=== PATIENT | female | born 1995 | race African-American/Black ===

== ENCOUNTER 2017-10-08 09:45 | Emergency (ER) | payer SELFPAY ==
[2017-10-08 11:14] LABS: Bilirubin Negative (Negative); Blood, Urine Trace (Negative); Glucose, Urine (Dipstick) Negative (Negative); Ketone, Urine Negative (Negative); Nitrite Negative (Negative); Protein, Urine (Dipstick) Negative (Neg-Trace); Urobilinogen 0.2 mg/dL (0.2-1.0)
[2017-10-08] MEDS ORDERED: Ondansetron ODT 4 MG TAB ONE (11:17)
[2017-10-08 11:33] LABS: Bacteria/HPF 2+ HPF (None Seen); Hyaline Casts/LPF NONE SEEN LPF (0-3 Hyaline)
== END 2017-10-08 12:08 | disposition home or self-care (01) ==
LOC: ERS 09:45
DX: O23.41 Unspecified infection of urinary tract in pregnancy, first trimester (principal); O99.341 Other mental disorders complicating pregnancy, first trimester; F41.9 Anxiety disorder, unspecified; F31.9 Bipolar disorder, unspecified
CPT/HCPCS: 81003; 81015; 81025; 87077; 87086; 87491; 87591; 99284; Q0162

== ENCOUNTER 2018-05-24 10:20 | Inpatient (IN) | payer OTHER ==
[2018-05-24] MEDS ORDERED: Sodium Chloride 0.9% 100 ML ONE (10:44)
[2018-05-24] MEDS ORDERED: Penicillin G Potassium 5 MILL.UNITS VIAL ONE (10:44)
[2018-05-24] MEDS: Lactated Ringer's 1,000 ML IV SCH ×2 (10:55→21:08)
[2018-05-24] MEDS ORDERED: HYDROcodone/Acetaminophen 5/325 mg Tablet PO PRN ×2 (11:08)
[2018-05-24] MEDS ORDERED: Ondansetron HCl/PF 4 MG/2 ML Vial IVP PRN ×4 (11:08→13:35)
[2018-05-24] MEDS ORDERED: Lidocaine 1% (PF) 30 ML VIAL SC PRN ×2 (11:08→12:48)
[2018-05-24] MEDS ORDERED: Butorphanol Tartrate 1 MG/ML VIAL SLOW IVP PRN (11:08)
[2018-05-24] MEDS ORDERED: Misoprostol 200 MCG TAB PR PRN (11:08)
[2018-05-24] MEDS ORDERED: Promethazine HCl 25 MG/ML VIAL IM PRN ×3 (11:08→12:48)
[2018-05-24] MEDS ORDERED: Ibuprofen 800 MG TAB PO PRN (11:08)
[2018-05-24] MEDS ORDERED: Docusate 100 MG CAP PO PRN (11:08)
[2018-05-24] MEDS ORDERED: Diphenoxylate HCl/Atropine Tablet PO PRN ×2 (11:08)
[2018-05-24] MEDS ORDERED: Acetaminophen 500 MG TAB PO PRN (11:08)
[2018-05-24] MEDS ORDERED: Penicillin G Potassium 5 MILL.UNITS in Sodium Chloride 0.9% 100 ML IVPB SCH (11:15)
[2018-05-24 11:24] VITALS: BMI 21.9
[2018-05-24] MEDS ORDERED: DISCONTINUE ALL PREVIOUS NARCOTICS FS SCH (11:30)
[2018-05-24] MEDS ORDERED: Bupivacaine 0.75% 13.4 ML, fentaNYL Citrate/PF 400 MCG in Sodium Chloride 0.9% 78.6 ML EPIDURAL SCH (11:30)
[2018-05-24 11:48] LABS: Hemoglobin 11.9 g/dL (12.0-16.0); Mean Corpuscular HGB CONC 30.8 g/dL (32.0-36.0); Mean Corpuscular Hemoglobin 29.4 pg (27.0-31.0); Mean Corpuscular Volume 95.4 fL (78.0-98.0); Mean Platelet Volume 9.4 fL (7.4-10.4); Platelet Count 202 thou/uL (130-400); Red Blood Cell (RBC) Count 4.04 mill/uL (4.20-5.40); White Blood Cell (WBC) Count 15.2 thou/uL (4.8-10.8)
[2018-05-24] MEDS ORDERED: diphenhydrAMINE 50 MG/ML VIAL IVP PRN (12:00)
[2018-05-24] MEDS ORDERED: ePHEDrine/0.9% NaCl/PF SYRINGE 50 mg/10 ml SLOW IVP PRN (12:00)
[2018-05-24] MEDS ORDERED: Naloxone HCl 0.4 mg/ml Vial IVP PRN ×2 (12:00)
[2018-05-24] MEDS ORDERED: Eucerin (Mineral Oil/Petrolatum,White) 30 gm Jar TOP PRN (12:00)
[2018-05-24] MEDS ORDERED: Acetaminophen 325 MG TAB PO PRN (12:00)
[2018-05-24] MEDS ORDERED: fentaNYL Citrate/PF 400 MCG, Bupivacaine 0.5% 20 ML in Sodium Chloride 0.9% 72 ML EPIDURAL SCH (12:00)
[2018-05-24] MEDS ORDERED: Lactated Ringer's 500 ML IV PRN (12:00)
[2018-05-24] MEDS ORDERED: Communication Order-Pharmacy FS SCH (12:00)
[2018-05-24 12:22] LABS: HBSAg Index 0.16 S/CO (0-0.99); Hep B Surf Ag Non-Reactive S/CO (NonReactive)
[2018-05-24 12:23] LABS: Syphilis Antibody Nonreactive (Nonreactive); Syphilis Antibody Index 0.06 S/CO (<1.00 Non-Reactive)
[2018-05-24] MEDS ORDERED: NS w/ Oxytocin 10 units 500 ML ONE (12:45)
[2018-05-24] MEDS ORDERED: NS / Oxytocin 40 units/1000ml 1,000 ML IV PRN (12:48)
[2018-05-24] MEDS: NS / Oxytocin 40 units/1000ml 1,000 ML IV PRN ×2 (13:25→15:08)
[2018-05-24] MEDS ORDERED: Preparation H Ointment 28 GM TUBE PR PRN (13:35)
[2018-05-24] MEDS ORDERED: Acetaminophen/Codeine 30-300mg Tablet PO PRN ×2 (13:35)
[2018-05-24] MEDS ORDERED: Benzocaine/Menthol 20-0.5% 60 ML CAN TOP PRN (13:35)
[2018-05-24] MEDS ORDERED: Lanolin Ointment 7 GM TUBE TOP PRN (13:35)
[2018-05-24] MEDS ORDERED: Adacel (T-DAP) 0.5 ML VIAL IM ONE (13:35)
[2018-05-24] MEDS ORDERED: diphenhydrAMINE 25 MG CAP PO PRN (13:35)
[2018-05-24] MEDS ORDERED: Milk Of Magnesia 30 ML UDCUP PO PRN (13:35)
[2018-05-24] MEDS ORDERED: Bisacodyl 10 MG SUPP PR PRN (13:35)
[2018-05-24] MEDS ORDERED: Zolpidem Tartrate 5 MG TAB PO PRN (13:35)
[2018-05-24] MEDS ORDERED: NS / Oxytocin 40 units/1000ml 1,000 ML IV SCH (13:45)
[2018-05-24] MEDS: NS w/ Oxytocin 10 units 500 ML IV SCH (14:40)
[2018-05-24] MEDS ORDERED: Penicillin G 2.5 MILL.units 2.5 MILL.UNITS in Premix Bag 1 BAG IVPB SCH (15:00)
[2018-05-24] MEDS: Ferrous Sulfate 325 MG TAB PO SCH (17:02)
[2018-05-24] MEDS: Ibuprofen 800 MG TAB PO SCH ×2 (17:12→21:12)
[2018-05-24] MEDS: Penicillin G 2.5 MILL.units 2.5 MILL.UNITS in Premix Bag 1 BAG IVPB SCH ×2 (17:47→21:13)
[2018-05-24] MEDS ORDERED: Bupivacaine/Epinephrine 0.25% 30 ML VIAL ONE (20:00)
[2018-05-24] MEDS ORDERED: Lidocaine 2% MPF 10 ML AMP (For Epidural Use) ONE (20:00)
[2018-05-24] MEDS: Docusate Calcium (SURFAK) 240 MG CAP PO SCH (21:12)
[2018-05-24] MEDS ORDERED: Calcium Carbonate 500 MG ChewTAB PO PRN (21:31)
[2018-05-25] MEDS: Ibuprofen 800 MG TAB PO SCH ×3 (05:28→21:30)
[2018-05-25] MEDS: Lactated Ringer's 1,000 ML IV SCH ×2 (05:28→12:16)
[2018-05-25] MEDS: Penicillin G 2.5 MILL.units 2.5 MILL.UNITS in Premix Bag 1 BAG IVPB SCH ×2 (05:29→10:00)
[2018-05-25 05:36] LABS: Hemoglobin 10.4 g/dL (12.0-16.0); Mean Corpuscular HGB CONC 33.4 g/dL (32.0-36.0); Mean Corpuscular Hemoglobin 31.7 pg (27.0-31.0); Mean Corpuscular Volume 94.9 fL (78.0-98.0); Mean Platelet Volume 8.8 fL (7.4-10.4); Platelet Count 169 thou/uL (130-400); RBC Distribution Width 12.8 % (11.5-14.5); Red Blood Cell (RBC) Count 3.28 mill/uL (4.20-5.40); White Blood Cell (WBC) Count 11.5 thou/uL (4.8-10.8)
[2018-05-25] MEDS: Docusate Calcium (SURFAK) 240 MG CAP PO SCH ×2 (09:10→21:29)
[2018-05-25] MEDS: Prenatal Vitamin 1 TAB PO SCH (09:10)
[2018-05-25] MEDS: Ferrous Sulfate 325 MG TAB PO SCH ×2 (10:00→18:08)
[2018-05-25] MEDS: NS w/ Oxytocin 10 units 500 ML IV SCH (15:40)
[2018-05-26] MEDS: Ibuprofen 800 MG TAB PO SCH ×2 (06:44→13:20)
[2018-05-26] MEDS: Lactated Ringer's 1,000 ML IV SCH ×4 (06:45→13:30)
[2018-05-26] MEDS: Docusate Calcium (SURFAK) 240 MG CAP PO SCH (08:14)
[2018-05-26] MEDS: Prenatal Vitamin 1 TAB PO SCH (08:14)
[2018-05-26] MEDS: Ferrous Sulfate 325 MG TAB PO SCH ×2 (08:56→13:29)
[2018-05-26] MEDS: NS w/ Oxytocin 10 units 500 ML IV SCH (10:40)
[2018-05-26 11:44] VITALS: TEMP 98.6
[2018-05-26 12:27] VITALS: BP 112/56
== END 2018-05-26 15:00 | disposition home or self-care (01) | DRG 775 ==
LOC: L&D 10:20 → 3SW 16:06
PROVIDERS: ADMIT Obstetrics & Gynecology; ATTEND Obstetrics & Gynecology
PROC: 10D07Z6 Extraction of Products of Conception, Vacuum, Via Natural or Artificial Opening (ICD-10-PCS; principal; 2018-05-24)
PROC: 0UQMXZZ Repair Vulva, External Approach (ICD-10-PCS; 2018-05-24)
DX: O99.824 Streptococcus B carrier state complicating childbirth (principal); O99.02 Anemia complicating childbirth; D64.9 Anemia, unspecified; O71.82 Other specified trauma to perineum and vulva; O76 Abnormality in fetal heart rate and rhythm complicating labor and delivery; Z3A.39 39 weeks gestation of pregnancy; Z37.0 Single live birth
CPT/HCPCS: 36415; 51702; 85027; 86780; 86850; 86900; 86901; 87340; 90715; J2001; J2405; J2540; J3010; J7050

== ENCOUNTER 2019-01-09 16:19 | Emergency (ER) | payer OTHER | END 2019-01-09 16:47 | disposition home or self-care (01) | LOC: ERS 16:19 | DX: L03.211 Cellulitis of face (principal) | CPT/HCPCS: 99283 ==

== ENCOUNTER 2019-02-28 20:39 | Emergency (ER) | payer MEDICAID, OTHER | END 2019-02-28 22:32 | disposition left against medical advice (07) | LOC: ERS 20:39 | DX: Z53.21 Procedure and treatment not carried out due to patient leaving prior to being seen by health care provider (principal) ==

== ENCOUNTER 2019-06-09 06:08 | Emergency (ER) | payer SELFPAY ==
[2019-06-09 06:40] LABS: Pregnancy Test - Urine (BHCG) Negative (Negative); Pregu Control Background? CLEAR/WHITE (CLR/WHITE); Pregu Control Bar Appear? YES (CONTROL BAR); Specific Gravity 1.019 (1.002-1.036)
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
== END 2019-06-09 07:28 | disposition home or self-care (01) ==
LOC: ERS 06:08
DX: S20.211A Contusion of right front wall of thorax, initial encounter (principal); R06.02 Shortness of breath; S50.02XA Contusion of left elbow, initial encounter; S80.12XA Contusion of left lower leg, initial encounter; F41.9 Anxiety disorder, unspecified; H10.9 Unspecified conjunctivitis; Y04.0XXA Assault by unarmed brawl or fight, initial encounter
CPT/HCPCS: 71046; 81025; 93005

== ENCOUNTER 2020-01-26 06:59 | Emergency (ER) | payer SELFPAY ==
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
== END 2020-01-26 10:01 | disposition home or self-care (01) ==
LOC: ERS 06:59
DX: S00.33XA Contusion of nose, initial encounter (principal); S40.212A Abrasion of left shoulder, initial encounter; F41.9 Anxiety disorder, unspecified; Y04.2XXA Assault by strike against or bumped into by another person, initial encounter
CPT/HCPCS: 70486

== ENCOUNTER 2020-02-02 08:33 | Emergency (ER) | payer SELFPAY ==
[2020-02-02] MEDS ORDERED: Erythromycin Base 0.5% Oint 1 GM TUBE ONE (09:26)
== END 2020-02-02 09:38 | disposition home or self-care (01) ==
LOC: ERS 08:33
DX: H10.9 Unspecified conjunctivitis (principal); F41.9 Anxiety disorder, unspecified
CPT/HCPCS: 99283

== ENCOUNTER 2020-03-20 13:07 | Emergency (ER) | payer BC, SELFPAY | END 2020-03-20 15:00 | disposition home or self-care (01) | LOC: ERS 13:07 | DX: H57.11 Ocular pain, right eye (principal); F41.9 Anxiety disorder, unspecified | CPT/HCPCS: 99283 ==

== ENCOUNTER 2020-07-23 14:21 | Emergency (ER) | payer BC ==
[2020-07-23] MEDS ORDERED: Ketorolac Tromethamine 30 MG/ML VIAL ONE (14:55)
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
== END 2020-07-23 16:24 | disposition home or self-care (01) ==
LOC: ERS 14:21
DX: R51 Headache (principal); M25.551 Pain in right hip; F41.9 Anxiety disorder, unspecified; F32.9 Major depressive disorder, single episode, unspecified; Z79.899 Other long term (current) drug therapy; V89.2XXA Person injured in unspecified motor-vehicle accident, traffic, initial encounter
CPT/HCPCS: 71045; 96372; J1885

== ENCOUNTER 2020-09-22 13:39 | Emergency (ER) | payer BC ==
[2020-09-22 17:35] LABS: Bilirubin Negative (Negative); Blood, Urine Negative (Negative); Clarity Clear (Clear); Glucose, Urine (Dipstick) 100 mg/dL (Negative); Ketone, Urine Negative (Negative); Leukocyte Trace (Negative); Nitrite Negative (Negative); Protein, Urine (Dipstick) Negative (Neg-Trace); Specific Gravity, Urine 1.015 (1.005-1.030)
[2020-09-22 17:36] LABS: Pregnancy Test - Urine (BHCG) POSITIVE (Negative); Pregu Control Background? CLEAR/WHITE (CLR/WHITE); Pregu Control Bar Appear? YES (CONTROL BAR); Specific Gravity 1.015 (1.002-1.036)
[2020-09-22 17:46] LABS: Bacteria/HPF None Seen HPF (None Seen); RBC/HPF 0-3 HPF (0-3); Squamous Epithelial 0-3 HPF (0-3); WBC/HPF 0-3 HPF (0-3)
[2020-09-22] MEDS ORDERED: Acetaminophen 500 MG TAB ONE (18:23)
[2020-09-23 23:27] LABS: Chlamydia by PCR Not Detected (NotDetected); GC by PCR Not Detected (NotDetected)
== END 2020-09-22 18:28 | disposition home or self-care (01) ==
LOC: ERS 13:39
DX: O99.891 Other specified diseases and conditions complicating pregnancy (principal); R51.9 Headache, unspecified
CPT/HCPCS: 81003; 81015; 81025; 87480; 87491; 87510; 87591; 87660; 99284

== ENCOUNTER 2024-02-01 06:37 | Emergency (ER) | payer OTHER, SELFPAY ==
[2024-02-01] MEDS ORDERED: Proparacaine 0.5% Opth 15 ML BOT ONE (07:23)
== END 2024-02-01 07:40 | disposition home or self-care (01) ==
LOC: ERS 06:37
DX: H10.31 Unspecified acute conjunctivitis, right eye (principal)
CPT/HCPCS: 99283

== ENCOUNTER 2024-10-20 09:12 | Emergency (ER) | payer OTHER, SELFPAY ==
[2024-10-20] MEDS ORDERED: Proparacaine 0.5% Opth 15 ML BOT ONE (09:39)
[2024-10-20] MEDS ORDERED: Fluorescein Opthalmic Strip ONE (09:39)
== END 2024-10-20 09:57 | disposition home or self-care (01) ==
LOC: ERS 09:12
DX: S05.01XA Injury of conjunctiva and corneal abrasion without foreign body, right eye, initial encounter (principal); X58.XXXA Exposure to other specified factors, initial encounter

== ENCOUNTER 2025-06-25 22:21 | Emergency (ER) | payer MEDICAID, OTHER | END 2025-06-26 00:40 | disposition home or self-care (01) | LOC: ERS 22:21 | DX: O98.512 Other viral diseases complicating pregnancy, second trimester (principal); B34.9 Viral infection, unspecified; Z3A.26 26 weeks gestation of pregnancy | CPT/HCPCS: 87081; 87428; 87430 ==